=== PATIENT | male | born 1955 | race Caucasian/White ===

== ENCOUNTER 2021-10-26 02:18 | Inpatient (IN) ==
[2021-10-26] MEDS ORDERED: 0.9 % SODIUM CHLORIDE 1,000 ML IV ONE ×3 (02:26→07:49)
[2021-10-26 03:23] LABS: POC Blood Urea Nitrogen 25 (6-20); POC Calcium, Ionized 0.91 (1.16-1.32); POC Chloride 88 (96-108); POC Glucose, Random 168 (70-105); POC Potassium < 2.0 (3.3-5.1); POC Sodium 129 (133-145)
[2021-10-26] MEDS ORDERED: POTASSIUM CHLORIDE 20 MEQ TABLET PO ONE ×3 (03:26→23:50)
[2021-10-26] MEDS ORDERED: MAGNESIUM SULFATE 8.12 MEQ in DEXTROSE 5% IN WATER 50 ML IV ONE (03:26)
--- NOTE | 2021-10-26 03:27 | Emergency Department Note ---
HPI General Chief complaint: Weakness Stated complaint: Weakness Time Seen by Provider: 10/26/21 03:24 Source: patient Mode of arrival: ambulatory Limitations: no limitations History of Present Illness HPI Narrative: Patient recently treated for pneumonia presents with persistent episodes of falls syncopal events most of which prior to arrival just feeling overall weak. Denies striking head unclear of any complete loss of consciousness but did describe possibly shaking episode did not bite tongue or lose bowel or bladder continence. Patient denies current CP, sob, fever, chills, abdominal pain, n/v/d/c, focal acute weakness, loss/change of sensation, or any other complaints at this time. PMH/PSHx/Meds/Allergies/SH/FH as per nursing documentation and reviewed. A full 10 point review of systems reviewed and negative except as noted in HPI. Related Data Home Medications Medication Instructions Recorded Confirmed albuterol sulfate 90 mcg/actuation 2 puff INHALATION QID g 08/03/17 08/05/21 aerosol inhaler (Ventolin HFA) allopurinol 100 mg tablet 100 mg PO QDAY 08/03/17 08/05/21 amlodipine 10 mg-valsartan 320 1 tab PO QDAY 08/03/17 08/05/21 mg-hydrochlorothiazide 25 mg tablet (Exforge HCT) fenofibrate micronized 134 mg 134 mg PO QDAY 08/03/17 08/05/21 capsule fluticasone furoate 100 1 inh INHALATION QDAY each 08/03/17 08/05/21 mcg-vilanterol 25 mcg/dose inhalation powder (Breo Ellipta) omega-3 acid ethyl esters 1 gram 1 cap PO BID cap 08/03/17 08/05/21 capsule (Lovaza) lorazepam 1 mg tablet 1 mg PO ONCE PRN tab 09/07/17 09/30/21 fluticasone fur. 100 mcg-umeclid 1 inh INHALATION Q24H 06/19/21 08/05/21 62.5 mcg-vilant 25 mcg inhalat.powder (Trelegy Ellipta) furosemide 20 mg tablet (Lasix) mg PO 06/19/21 08/05/21 oxycodone 5 mg tablet 5 mg PO BID PRN 06/19/21 08/05/21 albuterol sulfate 90 mcg/actuation CONTINUOUS INHALATION 09/30/21 aerosol inhaler Previous Rx's Medication Instructions Recorded doxycycline hyclate 100 mg capsule 100 mg PO BID #13 cap 10/24/21 Allergies Allergy/AdvReac Type Severity Reaction Status Date / Time No Known Drug Allergies Allergy Verified 10/26/21 02:23 Review of Systems ROS ROS Narrative: See HPI PFSH Narrative Patient History Narrative: Narrative: Medical/Surgical/Family History All Active Problems (Updated 10/26/21 @ 04:45 by Cricket Alcala DO) Lightheadedness (Acute) Adverse drug effect (Acute) Syncope (Acute) Hypokalemia (Acute) Hypomagnesemia (Acute) Radiculopathy of lumbar region (Acute) Other low back pain (Chronic) Hypertriglyceridemia (Chronic) History of measles (Chronic) Lumbar degenerative disc disease (Chronic) Benign hypertension with CKD (chronic kidney disease) stage III (Chronic) Gout due to renal impairment (Chronic) Chest pain, unspecified (Chronic) Nicotine dependence, cigarettes, in remission (Chronic) Hyperglycemia, unspecified (Chronic) Other fatigue (Chronic) Anxiety disorder, unspecified (Chronic) Abnormal findings on diagnostic imaging of other specified body structures (Chronic) Impaired fasting glucose (Chronic) Essential (primary) hypertension (Chronic) Depression (Chronic) Smoking (Chronic) COPD (chronic obstructive pulmonary disease) (Chronic) Hypertension (Chronic) History of mumps (Chronic) History of chicken pox (Chronic) Bronchitis (Chronic) Unspecified kidney failure (Chronic) CKD (chronic kidney disease) (Chronic) Medical History (Updated 10/26/21 @ 04:45 by Cricket Alcala DO) Abnormal findings on diagnostic imaging of other specified body structures Anxiety disorder, unspecified Benign hypertension with CKD (chronic kidney disease) stage III Bronchitis Chest pain, unspecified CKD (chronic kidney disease) CKD (chronic kidney disease) stage 3, GFR 30-59 ml/min COPD (chronic obstructive pulmonary disease) Depression Essential (primary) hypertension Gout due to renal impairment History of chicken pox History of measles History of mumps Hyperglycemia, unspecified Hypertension Hypertriglyceridemia Impaired fasting glucose Lumbar degenerative disc disease Nicotine dependence, cigarettes, in remission Other fatigue Other low back pain Smoking Substance abuse (~1994) Unspecified kidney failure Surgical History (Updated 07/24/21 @ 11:39 by Afsaneh Cid) History of colonoscopy History of excision of mass Right groin History of left knee surgery (~1985) Family History (Updated 07/08/21 @ 12:24 by Clemencia Fajardo) Father , 06/2003 Throat cancer Lung cancer Mother , 10/2006 COPD (chronic obstructive pulmonary disease) Sister Family history of diabetes mellitus (DM) Social History Smoking Status: Current every day smoker Alcohol Intake Frequency: 2+ drinks per day Substance Use: marijuana Exam Narrative Narrative: PHYSICIAL EXAM: Vitals reviewed GENERAL: Awake alert in bed, no acute distress,The patient appears nourished and normally developed. Vital signs as documented. EYES: Head exam is unremarkable. No scleral icterus no nystagmus no gaze preference face symmetric no droop Pupils equal round reactive bilaterally, EOMI grossly intact HEENT: Mucous membranes moist. Nares patent without copious rhinorrhea. No evidence of trauma to tongue LUNGS: Lungs are clear to auscultation, -r/r/w without any respiratory distress. CARDIAC: Rhythm is regular. No dysrhythmias or murmurs. ABDOMEN: Soft, non-tender, non-distended, no rebound/guarding, with no obvious masses EXTREMITIES: No peripheral edema, with no obvious deformities. Skin tear to right elbow, but full range of motion intact without any significant pain or discomfort SKIN: Good color, with no significant rashes. No pallor. NEURO: No obvious neurological deficits, normal sensation and strength bilaterally. NIH 0 No pronator drift, negative test of skew, no difficulty or ataxia with finger to nose testing General Limitations: no limitations Course Reevaluation(s) Reevaluation #1: Patient darian awake alert room, potassium read as less than 2, concern for possible error on rapid empirically replace magnesium give oral dose of potassium until full results obtainable Time: 03:28 Reevaluation #2: Discussed patient potassium level is critical require replacement feel it likely events of near syncope may have been electrolyte associated in nature Time: 04:13 Consultations Consultation #1: Dr. Nowak spoke to the admitting physician about the patient's clinical workup as well as the emergency medicine treatment. Physician agrees to admission to their service at this time. Accepting physician will continue the medical evaluation/workup and treatment plan upon admission and add additional testing, interventions/treatment as necessary Time: 04:35 Vital Signs Vital signs: Vital Signs Temperature 97.2 F 10/26/21 02:19 Pulse Rate 81 10/26/21 02:19 Respiratory Rate 16 10/26/21 02:19 Blood Pressure 96/53 10/26/21 02:19 Pulse Oximetry (%) 95 10/26/21 02:19 Temperature 97.2 F 10/26/21 02:19 Pulse Rate 74 10/26/21 03:46 Respiratory Rate 18 10/26/21 04:31 Blood Pressure 127/72 10/26/21 04:31 Pulse Oximetry (%) 94 10/26/21 03:46 MDM MDM Narrative Medical decision making narrative: All results/imaging obtained reviewed and interpreted, results trended/compared with previous levels if available to evaluate for abnormality contributing to todays presentation, EKG with nonspecific changes slight prolonged QT and QTC, found to be hypokalemic severely and hypomagnesemic the etiology of syncopal-like events weakness possible electrolyte associated or intermittent arrhythmia, additionally can add a component of recent change of cardiac medication as he st ates symptoms worsened since time of starting Norvasc, electrolytes being replaced emergency department discussed admitting physician, after reviewing patients comorbidities, severity of history of presenting illness, labs and imaging if obtained in conjunction with physical exam and course in emergency department, deemed to have potential for deterioration/progression of symptoms that could lead to multiple morbidities or mortality, decision made that patient requires further observation/evaluation/treatment and patient admitted to appropriate service, patient/family understand and agree with plan. Chart created with voice recognition software, errors may be present due to softwares interpretation Lab Data Result diagrams: 10/26/21 03:13 10/26/21 03:30 Labs: Lab Results 10/26/21 10/26/21 10/26/21 Range/Units 03:13 03:13 03:15 WBC 14.9 H (4.5-11.0) K/mcL RBC 3.42 L (4.63-6.08) M/mcL Hgb 13.0 L (13.7-17.5) g/dL Hct 35.4 L (40.1-51.0) % POC Hct 36.0 L (41-55) MCV 103.5 H (80.0-100.0) fL MCH 38.0 H (26.0-34.0) pg MCHC 36.7 H (31.0-36.0) g/dL RDW 14.0 (11.5-14.5) % Plt Count 142 (140-440) K/mcL MPV 10.6 H (7.4-10.4) fL Neut % (Auto) 83.1 H (38.0-78.0) % Lymph % (Auto) 10.4 L (15.5-49.0) % [place] % (Auto) 6.4 (1.0-12.0) % Eos % (Auto) 0 (0.0-7.0) % Baso % (Auto) 0.1 (0.0-2.0) % Lymph # (Auto) 1.55 (1.50-4.80) K/mcL [place] # (Auto) 0.95 H (0.10-0.90) K/mcL Eos # (Auto) 0 (0.00-0.70) K/mcL Baso # (Auto) 0.02 (0.00-0.30) K/mcL Absolute Neutrophils 12.34 H (1.80-8.00) K/mcL POC Sodium 129 L (133-145) Sodium (133-145) mmol/L POC Potassium < 2.0 L* (3.3-5.1) Potassium (3.3-5.1) mmol/L POC Chloride 88 L (96-108) Chloride (96-108) mmol/L Carbon Dioxide (22-30) mmol/L POC Total CO2 25.0 (22-30) Anion Gap (8.0-16.0) POC BUN 25 H (6-20) BUN (8-23) mg/dL Creatinine (0.7-1.2) mg/dL POC Creatinine 1.0 (0.6-1.2) GFR Calculation Glucose (70-105) mg/dL POC Glucose 168 H (70-105) Calcium (8.6-10.4) mg/dL POC WB Ioniz Calcium 0.91 L (1.16-1.32) Magnesium 1.5 L (1.6-2.5) mg/dL 10/26/21 Range/Units 03:30 WBC (4.5-11.0) K/mcL RBC (4.63-6.08) M/mcL Hgb (13.7-17.5) g/dL Hct (40.1-51.0) % POC Hct (41-55) MCV (80.0-100.0) fL MCH (26.0-34.0) pg MCHC (31.0-36.0) g/dL RDW (11.5-14.5) % Plt Count (140-440) K/mcL MPV (7.4-10.4) fL Neut % (Auto) (38.0-78.0) % Lymph % (Auto) (15.5-49.0) % [place] % (Auto) (1.0-12.0) % Eos % (Auto) (0.0-7.0) % Baso % (Auto) (0.0-2.0) % Lymph # (Auto) (1.50-4.80) K/mcL [place] # (Auto) (0.10-0.90) K/mcL Eos # (Auto) (0.00-0.70) K/mcL Baso # (Auto) (0.00-0.30) K/mcL Absolute Neutrophils (1.80-8.00) K/mcL POC Sodium (133-145) Sodium 128 L (133-145) mmol/L POC Potassium (3.3-5.1) Potassium 1.7 L* (3.3-5.1) mmol/L POC Chloride (96-108) Chloride 85 L (96-108) mmol/L Carbon Dioxide 24 (22-30) mmol/L POC Total CO2 (22-30) Anion Gap 19.0 H (8.0-16.0) POC BUN (6-20) BUN 24 H (8-23) mg/dL Creatinine 0.9 (0.7-1.2) mg/dL POC Creatinine (0.6-1.2) GFR Calculation 90 Glucose 168 H (70-105) mg/dL POC Glucose (70-105) Calcium 7.6 L (8.6-10.4) mg/dL POC WB Ioniz Calcium (1.16-1.32) Magnesium (1.6-2.5) mg/dL EKG Data EKG #1: EKG attestation: Yes I reviewed and interpreted this EKG. EKG results narrative: Obtained 0242 reviewed 0244 Sinus rhythm, intraventricular conduction delay, nonspecific ST changes rate 75 NM 167 QRS 125 QT 526 QTC 588 normal axis no acute ST elevation depression signs of acute ischemia No previous for comparison Interpreted personally CC TIME Critical Care Time Critical Care Time: Yes Attestation: Due to the patient's symptoms on presentation. Need for frequent reassessment. Potential for deterioration. All ordered diagnostic testing results obtained were reviewed and interpreted, results trended/compared with previous levels if available to evaluate for abnormality/interval change contributing to todays presentation, found to be severely hypokalemic IV and oral potassium replacement IV magnesium replacement discussion with admitting physician,the time required for documentation in ED EMR Critical care time total 35 minutes. This did not include any separate billable procedures. Discharge Plan Patient/Caregiver Discharge Instructions Pt seen by HAND STONE POLISHER/PA only: No Clinical Impression: Syncope, Hypokalemia, Hypomagnesemia Patient Disposition: Xfer As Inpt ([facility]) Follow up with: Eryn Littlejohn MD [Primary Care Provider] - Prescriptions: No Action omega-3 acid ethyl esters [Lovaza] 1 gram capsule 1 cap PO BID 0RF fenofibrate micronized 134 mg capsule 134 mg PO QDAY 0RF fluticasone furoate-vilanterol [Breo Ellipta] 100-25 mcg/dose blister with device 1 inh INHALATION QDAY 0RF albuterol sulfate [Ventolin HFA] 90 mcg/actuation HFA aerosol inhaler 2 puff INHALATION QID 0RF [id number]-[id number] [Exforge HCT] 10-320-25 mg tablet 1 tab PO QDAY 0RF allopurinol 100 mg tablet 100 mg PO QDAY 0RF lorazepam 1 mg tablet 1 mg PO ONCE PRN (Reason: Anxiety) 0RF furosemide [Lasix] 20 mg Tablet PO 0RF Trelegy Ellipta 100-62.5-25 mcg Blister With Device 1 inh INHALATION Q24H 0RF oxycodone 5 mg Tablet 5 mg PO BID PRN (Reason: Pain) 0RF albuterol sulfate 90 mcg/actuation HFA aerosol inhaler continuous inhalation 0RF doxycycline hyclate 100 mg capsule 100 mg PO BID Qty: 13 0RF
[2021-10-26 03:54] LABS: Basophils # (Auto) 0.02 K/mcL (0.00-0.30); Basophils % (Auto) 0.1 % (0.0-2.0); Eosinophils # (Auto) 0 K/mcL (0.00-0.70); Eosinophils % (Auto) 0 % (0.0-7.0); Hematocrit 35.4 % (40.1-51.0); Lymphocytes # (Auto) 1.55 K/mcL (1.50-4.80); Lymphocytes % (Auto) 10.4 % (15.5-49.0); Mean Cell Volume 103.5 fL (80.0-100.0); Mean Corpuscular HGB Conc 36.7 g/dL (31.0-36.0); Mean Platelet Volume 10.6 fL (7.4-10.4); Monocytes # (Auto) 0.95 K/mcL (0.10-0.90); Monocytes % (Auto) 6.4 % (1.0-12.0); Neutrophils % (Auto) 83.1 % (38.0-78.0); Platelet Count 142 K/mcL (140-440); RBC 3.42 M/mcL (4.63-6.08); WBC 14.9 K/mcL (4.5-11.0)
[2021-10-26] MEDS ORDERED: POTASSIUM CHLORIDE 20 MEQ in DEXTROSE 5% IN WATER 250 ML IV ONE (03:59)
[2021-10-26 04:01] LABS: Blood Urea Nitrogen 24 mg/dL (8-23); Calcium 7.6 mg/dL (8.6-10.4); Carbon Dioxide 24 mmol/L (22-30); Chloride 85 mmol/L (96-108); Glomerular Filtration Rate 90; Glucose 168 mg/dL (70-105)
--- NOTE | 2021-10-26 04:44 | Internal Med History&Physical ---
HPI History of Present Illness Patient information: Note initiated : 10/26/21 at 4:44 am Service Date, if different from initiated Date: [] Patient: Bassam Parkinson 66 y/o M admitted on for Weakness. Chief Complaint: [] History of present illness: Mr. Parkinson is a 66 year old male with a history of HTN, COPD, gout presented to the ED for dyspnea and discharged home on 10/24/2021 with a prescription for doxycycline for pneumonia. The patient returned to the ED after falling multiple times at home. The patient was found to have leukocytosis, severe hypokalemia and hypomagnesemia as well as hypocalcemia. Hospital medicine was consulted for admission. Review of systems Constitutional: Positive for fatigue, fevers Eyes: no vision changes or pain Cardiovascular: no chest pain, no palpitations Respiratory: Positive for productive cough and dyspnea Gastrointestinal: no abdominal pain, no nausea, vomiting, or diarrhea Genitourinary: no dysuria or difficulty voiding Musculoskeletal: no arthralgia or myalgia Integumentary: no skin lesion or wound Neurological: no focal weakness or numbness Psychiatric: no anxiety or depression Physical exam Head: Atraumatic, normal inspection. Eyes: normal appearance, no scleral icterus. Neck: full ROM Respiratory: Bilateral crackles, right greater than left, on room air, no respiratory distress. Cardiovascular: normal rate and rhythm, S1, S2. GI/Abdominal: soft, nontender, no guarding. Extremities: full range of motion, nontender. Neurological: CN II-XII intact, intact motor, intact sensation. Psychiatric: normal mood. Skin: warm, normal color PFSH PFSH All Active Problems (Updated 10/26/21 @ 04:45 by Cricket Alcala DO) Lightheadedness (Acute) Adverse drug effect (Acute) Syncope (Acute) Hypokalemia (Acute) Hypomagnesemia (Acute) Radiculopathy of lumbar region (Acute) Other low back pain (Chronic) Hypertriglyceridemia (Chronic) History of measles (Chronic) Lumbar degenerative disc disease (Chronic) Benign hypertension with CKD (chronic kidney disease) stage III (Chronic) Gout due to renal impairment (Chronic) Chest pain, unspecified (Chronic) Nicotine dependence, cigarettes, in remission (Chronic) Hyperglycemia, unspecified (Chronic) Other fatigue (Chronic) Anxiety disorder, unspecified (Chronic) Abnormal findings on diagnostic imaging of other specified body structures (Chronic) Impaired fasting glucose (Chronic) Essential (primary) hypertension (Chronic) Depression (Chronic) Smoking (Chronic) COPD (chronic obstructive pulmonary disease) (Chronic) Hypertension (Chronic) History of mumps (Chronic) History of chicken pox (Chronic) Bronchitis (Chronic) Unspecified kidney failure (Chronic) CKD (chronic kidney disease) (Chronic) Medical History (Updated 10/26/21 @ 04:45 by Cricket Alcala DO) Abnormal findings on diagnostic imaging of other specified body structures Anxiety disorder, unspecified Benign hypertension with CKD (chronic kidney disease) stage III Bronchitis Chest pain, unspecified CKD (chronic kidney disease) CKD (chronic kidney disease) stage 3, GFR 30-59 ml/min COPD (chronic obstructive pulmonary disease) Depression Essential (primary) hypertension Gout due to renal impairment History of chicken pox History of measles History of mumps Hyperglycemia, unspecified Hypertension Hypertriglyceridemia Impaired fasting glucose Lumbar degenerative disc disease Nicotine dependence, cigarettes, in remission Other fatigue Other low back pain Smoking Substance abuse (~1994) Unspecified kidney failure Surgical History (Updated 07/24/21 @ 11:39 by Afsaneh Cid) History of colonoscopy History of excision of mass Right groin History of left knee surgery (~1985) Family History (Updated 07/08/21 @ 12:24 by Clemencia Fajardo) Father , 06/2003 Throat cancer Lung cancer Mother , 10/2006 COPD (chronic obstructive pulmonary disease) Sister Family history of diabetes mellitus (DM) Social History (Updated 07/24/21 @ 11:41 by Afsaneh Cid) marital status: other details: twice, in stable relationship for 15 yrs. 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 substance use type: marijuana MEDS/ALLERGIES Home Medications and Allergies Home Medications Medication Instructions Recorded Confirmed Type fenofibrate micronized 134 mg 134 mg PO HS 08/03/17 10/26/21 History capsule omega-3 acid ethyl esters 1 gram 1 cap PO BID cap 08/03/17 10/26/21 History capsule (Lovaza) doxycycline hyclate 100 mg capsule 100 mg PO BID #13 cap 10/24/21 10/26/21 Rx albuterol sulfate 90 mcg/actuation 2 inh INHALATION QID 10/26/21 10/26/21 History aerosol inhaler allopurinol 100 mg tablet 1 tab PO HS 10/26/21 10/26/21 History amlodipine 5 mg tablet 1 tab PO HS 10/26/21 10/26/21 History fluticasone fur. 100 mcg-umeclid 1 puff PO QDAY 10/26/21 10/26/21 History 62.5 mcg-vilant 25 mcg inhalat.powder (Trelegy Ellipta) lorazepam 1 mg tablet 1 tab PO BIDP PRN 10/26/21 10/26/21 History oxycodone-acetaminophen 5 mg-325 1 - 2 tab PO Q6HP PRN 10/26/21 10/26/21 History mg tablet sertraline 100 mg tablet 1 tab PO HS 10/26/21 10/26/21 History sildenafil 100 mg tablet 1 tab PO QDP PRN 10/26/21 10/26/21 History telmisartan 80 mg tablet 1 tab PO HS 10/26/21 10/26/21 History Allergies Allergy/AdvReac Type Severity Reaction Status Date / Time No Known Drug Allergies Allergy Verified 10/26/21 02:23 EXAM Constitutional Vitals: Temp Pulse Resp BP Pulse Ox 97.2 F 74 18 127/72 94 10/26/21 02:19 10/26/21 03:46 10/26/21 04:31 10/26/21 04:31 10/26/21 03:46 DATA Data Completed and Pending Labs: Labs from last 24 hours 10/26/21 10/26/21 10/26/21 03:30 03:15 03:13 WBC 14.9 H RBC 3.42 L Hgb 13.0 L Hct 35.4 L POC Hct 36.0 L MCV 103.5 H MCH 38.0 H MCHC 36.7 H RDW 14.0 Plt Count 142 MPV 10.6 H Neut % (Auto) 83.1 H Lymph % (Auto) 10.4 L [place] % (Auto) 6.4 Eos % (Auto) 0 Baso % (Auto) 0.1 Lymph # (Auto) 1.55 [place] # (Auto) 0.95 H Eos # (Auto) 0 Baso # (Auto) 0.02 Absolute Neutrophils 12.34 H POC Sodium 129 L Sodium 128 L POC Potassium < 2.0 L* Potassium 1.7 L* POC Chloride 88 L Chloride 85 L Carbon Dioxide 24 POC Total CO2 25.0 Anion Gap 19.0 H POC BUN 25 H BUN 24 H Creatinine 0.9 POC Creatinine 1.0 GFR Calculation 90 Glucose 168 H POC Glucose 168 H Calcium 7.6 L POC WB Ioniz Calcium 0.91 L Magnesium 10/26/21 03:13 WBC RBC Hgb Hct POC Hct MCV MCH MCHC RDW Plt Count MPV Neut % (Auto) Lymph % (Auto) [place] % (Auto) Eos % (Auto) Baso % (Auto) Lymph # (Auto) [place] # (Auto) Eos # (Auto) Baso # (Auto) Absolute Neutrophils POC Sodium Sodium POC Potassium Potassium POC Chloride Chloride Carbon Dioxide POC Total CO2 Anion Gap POC BUN BUN Creatinine POC Creatinine GFR Calculation Glucose POC Glucose Calcium POC WB Ioniz Calcium Magnesium 1.5 L A/P Narrative A/P Narrative: Assessment: 66 year old male with a history of HTN, COPD, gout presented to the ED for dyspnea and discharged home on 10/24/2021 with a prescription for doxycycline for pneumonia. The patient returned to the ED after falling multiple times at home, subsequently admitted to the hospital for further management. #Sepsis probably secondary to community-acquired pneumonia #Severe hypokalemia #Hypomagnesemia #Hypocalcemia #Prolonged QT interval #Moderate hyponatremia #Anion gap #Macrocytic anemia #Essential hypertension #COPD #Gout #Tobacco use disorder #Alcohol use disorder Plan -Vancomycin, Zosyn, doxycycline for now. -Potassium replacement. -Magnesium replacement. -Follow potassium closely until normalized. -Avoid QT prolonging medications. -Monitor QT interval until normalized. -Hold home diuretics until potassium normalized. -IV fluid with NS. -Sputum gram stain and culture. -MRSA nasal PCR. -Blood cultures. -UA w/ reflex. -CT chest without contrast. -Check lactic acid, procal, CRP. -Check vitamin B12 and folic acid. -Check Vitamin D level. -DuoNeb Q6 hrs and albuterol nebs as needed -Nicotine replacement. -Monitor for alcohol withdrawal symptoms. -Home medication reconciliation. -Regular diet. -site monitor. -DVT ppx: Lovenox -Code status: Metal Grader Spent With Patient Time: Total time spent is greater than 50% in coordination of care (as documented) at patient's floor/unit and/or counseling patient:
[2021-10-26] MEDS ORDERED: 0.9 % SODIUM CHLORIDE 500 ML IV ONE ×2 (04:48→07:52)
--- NOTE | 2021-10-26 05:31 | Cat Scan Report ---
CLINICAL INFORMATION: Trauma-fall. Dizziness COMPARISON: None. TECHNIQUE: 2.5 mm helical slices were obtained in the skull base to vertex. Following reconstruction, axial reformatted images were reviewed at bone and parenchymal windows. The exam was performed using radiation dose optimization techniques including, but not limited to, automated exposure control, adjustment of the mA and/or kV according to patient size and use of iterative reconstruction technique. FINDINGS: The ventricles, sulci, fissures, and cisterns are symmetrically enlarged compatible with mild age-related atrophy. No extra-axial fluid collections are identified. Mild patchy chronic ischemic changes, in the deep cerebral white matter, are expected for age. There is no hemorrhage, mass effect, or edema. Bone windows show no osseous abnormality. IMPRESSION: Mild atrophy and chronic ischemic changes in the deep cerebral white matter-expected for age. No acute findings Interpreted and Authenticated by: Vikas Sykes 10/26/21
[2021-10-26] MEDS ORDERED: SENNOSIDES 1 TABLET PO PRN (05:45)
[2021-10-26] MEDS ORDERED: HYDROcodone/APAP 5/325MG TABLET PO PRN (05:45)
[2021-10-26] MEDS ORDERED: LACTULOSE 20 GM/30 ML ORAL.SOL PO PRN (05:45)
[2021-10-26] MEDS ORDERED: ACETAMINOPHEN 325 MG TABLET PO PRN (05:45)
[2021-10-26] MEDS ORDERED: ONDANSETRON 4 MG/2 ML VIAL IV PRN (05:45)
[2021-10-26] MEDS ORDERED: IPRATROPIUM/ALBUTEROL 3 ML AMPUL.NEB NEB SCH (07:00)
[2021-10-26] MEDS: 0.9 % SODIUM CHLORIDE 1,000 ML IV SCH ×3 (07:36→19:17)
[2021-10-26] MEDS: 0.9 % SODIUM CHLORIDE 10 ML SYRINGE IV SCH ×3 (07:36→20:09)
[2021-10-26] MEDS ORDERED: VANCOMYCIN PER PHARMACY IV SCH (07:48)
[2021-10-26] MEDS ORDERED: POTASSIUM CHLORIDE 20 MEQ TABLET PO SCH ×4 (08:00→19:00)
[2021-10-26] MEDS ORDERED: VANCOMYCIN 1,500 MG in 0.9 % SODIUM CHLORIDE 500 ML IV SCH (08:15)
[2021-10-26] MEDS ORDERED: IPRATROPIUM/ALBUTEROL 3 ML AMPUL.NEB NEB PRN (08:20)
[2021-10-26 08:32] LABS: Appearance,Urine CLEAR (Clear); Bilirubin,Urine Negative (Negative); Color,Urine STRAW; Culture Indicated,Urine No; Glucose,Urine (UA) Negative (Negative); Ketones,Urine Negative (Negative); Leukocyte Esterase,Urine Negative /uL (Negative); Nitrate,Urine Negative (Negative); Protein,Urine Negative (Negative); Specific Gravity,Urine 1.004 (1.000-1.035); Urine Blood Negative (Negative); Urobilinogen,Urine Negative
[2021-10-26] MEDS: ALLOPURINOL 100 MG TABLET PO SCH ×3 (08:44→20:01)
[2021-10-26] MEDS: ENOXAPARIN 40 MG/0.4 ML SYRINGE SQ SCH (08:44)
[2021-10-26] MEDS: LORazepam 1 MG TABLET PO PRN ×2 (08:45→21:41)
[2021-10-26] MEDS: PIPERACILLIN SODIUM/TAZOBACTAM 4.5 GM in DEXTROSE 5% IN WATER 50 ML IV SCH ×2 (08:59→14:17)
[2021-10-26] MEDS ORDERED: SERTRALINE 100 MG TABLET PO SCH (09:00)
[2021-10-26] MEDS: FLUTICASONE UMECLIDIN VILANTER INH SCH (09:02)
[2021-10-26] MEDS: DOCUSATE SODIUM 100 MG CAPSULE PO SCH ×2 (09:02→19:33)
[2021-10-26] MEDS ORDERED: ALBUTEROL SULFATE 2.5 MG/3 ML NEBULIZER NEB PRN (09:43)
[2021-10-26] MEDS ORDERED: LORazepam 2 MG/ML VIAL IV PRN ×2 (09:45→23:29)
[2021-10-26] MEDS ORDERED: NICOTINE POLACRILEX 2 MG GUM CHEW/PARK PRN (09:46)
[2021-10-26] MEDS: DOXYCYCLINE 100 MG in DEXTROSE 5% IN WATER 100 ML IV SCH ×2 (11:08→19:12)
[2021-10-26] MEDS: NICOTINE 21 MG PATCH TOPICAL SCH ×2 (11:08→11:18)
[2021-10-26 11:37] LABS: Blood Urea Nitrogen 18 mg/dL (8-23); Calcium 7.2 mg/dL (8.6-10.4); Carbon Dioxide 27 mmol/L (22-30); Chloride 95 mmol/L (96-108); Folate 5.1 ng/mL (4.2-19.9); Glomerular Filtration Rate 99; Glucose 146 mg/dL (70-105)
[2021-10-26] MEDS ORDERED: CALCIUM GLUCONATE 4.65 MEQ in DEXTROSE 5% IN WATER 50 ML IV SCH (11:45)
[2021-10-26 11:50] LABS: Vitamin D 25 Hydroxy-SO < 5 ng/mL (>30)
[2021-10-26] MEDS ORDERED: oxyCODONE/APAP 5/325MG TABLET PO PRN (12:00)
[2021-10-26] MEDS: CALCIUM CARBONATE 500 MG TAB.CHEW CHEWED SCH ×2 (12:03→17:37)
--- NOTE | 2021-10-26 13:52 | Cat Scan Report ---
CLINICAL INFORMATION: Cough and weakness. Evaluate for pneumonia. History of colon cancer COMPARISON: Chest CT 05/25/2018 TECHNIQUE: 0.625 mm axial slices were obtained from the lung apices through the bases without intravenous contrast. 2.5 mm Sagittal, coronal and axial reformatted images were processed and reviewed at bone, lung and soft tissue windows. 7 mm axial MIP images were also reconstructed to optimize pulmonary nodule detection.The exam was performed using radiation dose optimization techniques including, but not limited to, automated exposure control, adjustment of the mA and/or kV according to patient size and use of iterative reconstruction technique. FINDINGS: Pulmonary parenchymal windows show mild centrilobular emphysema featuring chronic bronchitis with elevated lung volumes and wall thickening/dilatation of the bronchi. There are also multiple small bullae predominantly within the upper lobes. Moderate patchy groundglass/tree-in-bud infiltrates have developed in both lower lobes with smaller infiltrates in the lingula and posterior segments of both upper lobes. Findings suspicious for aspiration pneumonia. There are no effusions. Mediastinal windows show the heart is grossly normal in size and configuration. Extremely heavy calcific plaque in the coronary artery has progressed since the 2018 exam particularly in the LAD and circumflex coronary arteries. The pulmonary arteries are normal diameter well-opacified without evidence of embolus. Thoracic aorta is also normal diameter and well-opacified. There is no adenopathy in the mediastinal, hilar or axillary regions. Esophagus is grossly normal. The thyroid is unremarkable. Bones and soft tissues of the chest wall show no abnormality. Images through the superior abdomen moderate hepatomegaly with diffuse fatty change-a new finding from 2018 CT. The remainder the visualized superior abdomen is normal. IMPRESSION: 1. Moderate patchy alveolar infiltrates in both lower lobes with smaller infiltrates scattered in the lingula and both upper lobes. Findings are suspicious for aspiration pneumonia. Infection is also possible. 2. Moderate centrilobular emphysema 3. Extraordinarily heavy calcific plaque in the coronary arteries which has progressed since the comparison CT over three years ago. Suspect occlusive or subocclusive coronary artery disease. Consider cardiology referral for stress testing. 4. Moderate hepatomegaly with diffuse fatty change-a new finding from prior CT. Interpreted and Authenticated by: Vikas Sykes 10/26/21
[2021-10-26] MEDS ORDERED: REMDESIVIR 200 MG in 0.9 % SODIUM CHLORIDE 250 ML IV ONE (16:36)
[2021-10-26] MEDS ORDERED: DEXAMETHASONE 10 MG/ML VIAL IV SCH (16:40)
[2021-10-26 17:28] LABS: ALT/SGPT 95 U/L (<40); AST/SGOT 126 U/L (<40); Albumin 2.7 gm/dL (3.2-5.2); Alkaline Phosphatase 114 U/L (39-117); Bilirubin,Direct 0.4 mg/dL (<0.3); Bilirubin,Total 0.8 mg/dL (0.1-1.0); Blood Urea Nitrogen 15 mg/dL (8-23); Calcium 7.7 mg/dL (8.6-10.4); Carbon Dioxide 28 mmol/L (22-30); Chloride 100 mmol/L (96-108); Globulin 2.7 gm/dL (2.2-3.7); Glomerular Filtration Rate 99; Glucose 133 mg/dL (70-105); Lactate Dehydrogenase 318 U/L (135-225); Phosphorous 0.9 mg/dL (2.5-4.5); Triglycerides 158 mg/dL (<150); Uric Acid 4.2 mg/dL (2.5-8.0)
[2021-10-26] MEDS: cefTRIAXone 1 GM VIAL IV SCH (18:00)
[2021-10-26] MEDS ORDERED: MAGNESIUM SULFATE 2 GM/50 ML BAG IV SCH (19:00)
[2021-10-26] MEDS ORDERED: VITAMIN D3 125 MCG TABLET PO SCH (19:00)
[2021-10-26] MEDS ORDERED: VANCOMYCIN 750 MG in 0.9 % SODIUM CHLORIDE 250 ML IV SCH (20:00)
[2021-10-26] MEDS: SERTRALINE 100 MG TABLET PO SCH (20:01)
[2021-10-26] MEDS ORDERED: REMDESIVIR 200 MG in 0.9 % SODIUM CHLORIDE 250 ML IV SCH (20:45)
[2021-10-26] MEDS ORDERED: ETHYL ALCOHOL 30 ML ORAL.SOL PO PRN (22:03)
[2021-10-26] MEDS ORDERED: ETHYL ALCOHOL 30 ML ORAL.SOL PO ONE (22:40)
[2021-10-26 23:23] LABS: Blood Urea Nitrogen 12 mg/dL (8-23); Calcium 7.9 mg/dL (8.6-10.4); Carbon Dioxide 27 mmol/L (22-30); Chloride 96 mmol/L (96-108); Glomerular Filtration Rate 106; Glucose 99 mg/dL (70-105)
[2021-10-26] MEDS ORDERED: POTASSIUM PHOSPHATE 40 MEQ in DEXTROSE 5% IN WATER 500 ML IV ONE (23:29)
[2021-10-26] MEDS ORDERED: POTASSIUM PHOSPHATE 66 MEQ/15 ML VIAL IV ONE (23:48)
[2021-10-27] MEDS: 0.9 % SODIUM CHLORIDE 1,000 ML IV SCH (01:56)
[2021-10-27] MEDS: THIAMINE 100 MG in 0.9 % SODIUM CHLORIDE 50 ML IV SCH ×2 (01:56→11:30)
[2021-10-27] MEDS: 0.9 % SODIUM CHLORIDE 10 ML SYRINGE IV SCH ×6 (05:29→22:31)
[2021-10-27] MEDS ORDERED: ETHYL ALCOHOL 30 ML ORAL.SOL PO PRN (06:00)
[2021-10-27 07:15] LABS: Basophils # (Auto) 0.01 K/mcL (0.00-0.30); Basophils % (Auto) 0.1 % (0.0-2.0); Eosinophils # (Auto) 0 K/mcL (0.00-0.70); Eosinophils % (Auto) 0 % (0.0-7.0); Hematocrit 36.1 % (40.1-51.0); Hemoglobin 13.1 g/dL (13.7-17.5); Lymphocytes # (Auto) 1.04 K/mcL (1.50-4.80); Lymphocytes % (Auto) 9.7 % (15.5-49.0); Mean Cell Volume 104.9 fL (80.0-100.0); Mean Corpuscular HGB Conc 36.3 g/dL (31.0-36.0); Mean Platelet Volume 9.9 fL (7.4-10.4); Monocytes # (Auto) 0.79 K/mcL (0.10-0.90); Monocytes % (Auto) 7.4 % (1.0-12.0); Neutrophils % (Auto) 82.8 % (38.0-78.0); Platelet Count 134 K/mcL (140-440); RBC 3.44 M/mcL (4.63-6.08); Red Cell Distribution Width 13.9 % (11.5-14.5); WBC 10.7 K/mcL (4.5-11.0)
[2021-10-27 07:44] LABS: ALT/SGPT 92 U/L (<40); AST/SGOT 99 U/L (<40); Albumin 3.2 gm/dL (3.2-5.2); Albumin/Globulin Ratio 1.4 (1.0-2.3); Alkaline Phosphatase 103 U/L (39-117); Bilirubin,Direct 0.4 mg/dL (<0.3); Bilirubin,Total 0.7 mg/dL (0.1-1.0); Blood Urea Nitrogen 7 mg/dL (8-23); Calcium 7.1 mg/dL (8.6-10.4); Carbon Dioxide 27 mmol/L (22-30); Chloride 99 mmol/L (96-108); Globulin 2.3 gm/dL (2.2-3.7); Glomerular Filtration Rate 114; Glucose 99 mg/dL (70-105); Lactate Dehydrogenase 307 U/L (135-225); Phosphorous 1.8 mg/dL (2.5-4.5); Triglycerides 160 mg/dL (<150); Uric Acid 2.7 mg/dL (2.5-8.0)
[2021-10-27] MEDS ORDERED: MAGNESIUM SULFATE 2 GM/50 ML BAG IV ONE (07:46)
[2021-10-27] MEDS ORDERED: POTASSIUM PHOSPHATE 40 MEQ in DEXTROSE 5% IN WATER 500 ML IV SCH (08:00)
[2021-10-27] MEDS ORDERED: POTASSIUM CHLORIDE 20 MEQ TABLET PO SCH (08:00)
[2021-10-27] MEDS: VITAMIN D3 125 MCG TABLET PO SCH (08:14)
[2021-10-27] MEDS: CALCIUM CARBONATE 500 MG TAB.CHEW CHEWED SCH ×3 (08:14→16:50)
[2021-10-27] MEDS: FOLIC ACID 1 MG TABLET PO SCH (08:14)
[2021-10-27] MEDS: MULTIVIT,THER IRON,CA,FA & MIN 1 TABLET PO SCH (08:14)
[2021-10-27] MEDS: cefTRIAXone 1 GM VIAL IV SCH (08:15)
[2021-10-27] MEDS: DOXYCYCLINE 100 MG in DEXTROSE 5% IN WATER 100 ML IV SCH ×2 (08:15→20:19)
[2021-10-27] MEDS: ENOXAPARIN 40 MG/0.4 ML SYRINGE SQ SCH (08:32)
[2021-10-27] MEDS: DOCUSATE SODIUM 100 MG CAPSULE PO SCH ×2 (08:32→20:46)
[2021-10-27] MEDS: FLUTICASONE UMECLIDIN VILANTER INH SCH (08:32)
[2021-10-27] MEDS ORDERED: LISINOPRIL 10 MG TABLET PO SCH (09:00)
--- NOTE | 2021-10-27 09:22 | Internal Med Progress Note ---
SUBJECTIVE Subjective Patient information: Note initiated : 10/27/21 at 9:18 am Service Date, if different from initiated Date: [] Patient: Bassam Parkinson 66 y/o M admitted on 10/26/21 for Weakness. Chief Complaint: [] Interval history: Mr. Parkinson is a 66 year old male with a history of HTN, COPD, gout presented to the ED for dyspnea and discharged home on 10/24/2021 with a prescription for doxycycline for pneumonia. The patient returned to the ED after falling multiple times at home. The patient was found to have leukocytosis, severe hy pokalemia and hypomagnesemia as well as hypocalcemia. Hospital medicine was consulted for admission. 10/27 Annabella resulted as positive for SARS-CoV-2, patient is on room air, high-grade temps but no fevers overnight Remdesivir started for nonsevere COVID of recent onset. Ongoing electrolyte replacement with potassium, phosphorus, magnesium. Repeat EKG shows improvement in QT interval. Aldosterone and renin activity ratio ordered for persistent hypokalemia in the setting of hypertension. Home telmisartan and amlodipine resumed. Physical exam Head: Atraumatic, normal inspection. Eyes: normal appearance, no scleral icterus. Neck: full ROM Respiratory: On room air, no respiratory distress. Cardiovascular: normal rate and rhythm, S1, S2. GI/Abdominal: soft, nontender, no guarding. Extremities: full range of motion, nontender. Neurological: CN II-XII intact, intact motor, intact sensation. Psychiatric: normal mood. Skin: warm, normal color Constitutional Vitals: Vital Signs Temp Pulse Resp BP Pulse Ox 99.4 F H 77 22 147/86 95 10/27/21 08:38 10/26/21 20:01 10/27/21 04:51 10/27/21 08:38 10/27/21 08:38 Period Temp Pulse Resp BP Sys/June Pulse Ox Last 24 Hr 97.7 F-99.4 F 71-79 - 116-164/73-114 92-98 Intake and Output 10/26/21 10/27/21 10/27/21 21:59 05:59 13:59 Intake Total 1800 1599.0909 Output Total 350 150 Balance 1450 1449.0909 Weight 75.568 kg Intake & Output: Intake & Output 10/26/21 10/27/21 10/27/21 21:59 05:59 13:59 Intake Total 1800 1599.0909 Output Total 350 150 Balance 1450 1449.0909 Weight 75.568 kg Intake: IV 8504 402.8003 Sodium Chloride 0.9% 1,000 ml @ 1000 100 mls/hr IV .Q10H [facility] Rx#: [id number] Vibramycin 100 mg In Dextrose 5 100 % in Water 100 ml @ 100 mls/hr IV Q12H [facility] Rx#:[id number] Zosyn 4.5 gm In Dextrose 5% in 50 Water 50 ml @ 100 mls/hr IV Q6H [facility] Rx#:[id number] Potassium Phosphate 40 Meq In 509.0909 Dextrose 5% in Water 500 ml @ 127.273 mls/hr IV ONCE ONE Rx#: [id number] Veklury 200 mg In Sodium 250 Chloride 0.9% 250 ml @ 500 mls/ hr IV 2045 [facility] Rx#:[id number] Oral 600 840 Output: Void Amount 350 150 Other: Meal Dinner Percent of Meal Consumed 100% Feeding Ability Independent Urine Appearance Clear Clear Urine Color Dark Yellow Bright Yellow Urine Odor Normal Stool Size Small Small Stool Color Brown Brown Stool Consistency Loose Liquid Loose # Voids 1 1 # Bowel Movements 1 1 OBJ DATA Labs CBC & Chem 7: 10/27/21 06:00 10/27/21 06:00 Labs: Abnormal Lab Results 10/27/21 10/27/21 10/26/21 06:00 06:00 21:53 WBC RBC 3.44 L Hgb 13.1 L Hct 36.1 L POC Hct MCV 104.9 H MCH 38.1 H MCHC 36.3 H Plt Count 134 L MPV Neut % (Auto) 82.8 H Lymph % (Auto) 9.7 L Lymph # (Auto) 1.04 L [place] # (Auto) Absolute Neutrophils 8.85 H VBG Lactic Acid POC Sodium Sodium POC Potassium Potassium 2.7 L* 2.8 L* POC Chloride Chloride Anion Gap POC BUN BUN 7 L Creatinine 0.5 L 0.6 L Glucose POC Glucose Calcium 7.1 L 7.9 L POC WB Ioniz Calcium Phosphorus 1.8 L Magnesium 1.4 L Direct Bilirubin 0.4 H GGT 563 H AST 99 H ALT 92 H Lactate Dehydrogenase 307 H C-Reactive Protein Total Protein 5.5 L Albumin Triglycerides 160 H 25-OH Vitamin D Total Procalcitonin 10/26/21 10/26/21 10/26/21 16:01 10:11 10:11 WBC RBC Hgb Hct POC Hct MCV MCH MCHC Plt Count MPV Neut % (Auto) Lymph % (Auto) Lymph # (Auto) [place] # (Auto) Absolute Neutrophils VBG Lactic Acid POC Sodium Sodium POC Potassium Potassium 2.6 L* 2.0 L* POC Chloride Chloride 95 L Anion Gap POC BUN BUN Creatinine Glucose 133 H 146 H POC Glucose Calcium 7.7 L 7.2 L POC WB Ioniz Calcium Phosphorus 0.9 L Magnesium 1.5 L Direct Bilirubin 0.4 H GGT 543 H AST 126 H ALT 95 H Lactate Dehydrogenase 318 H C-Reactive Protein Total Protein 5.4 L Albumin 2.7 L Triglycerides 158 H 25-OH Vitamin D Total < 5 L Procalcitonin 10/26/21 10/26/21 10/26/21 06:11 06:11 06:10 WBC RBC Hgb Hct POC Hct MCV MCH MCHC Plt Count MPV Neut % (Auto) Lymph % (Auto) Lymph # (Auto) [place] # (Auto) Absolute Neutrophils VBG Lactic Acid 3.3 H POC Sodium Sodium POC Potassium Potassium POC Chloride Chloride Anion Gap POC BUN BUN Creatinine Glucose POC Glucose Calcium POC WB Ioniz Calcium Phosphorus Magnesium Direct Bilirubin GGT AST ALT Lactate Dehydrogenase C-Reactive Protein 13.30 H Total Protein Albumin Triglycerides 25-OH Vitamin D Total Procalcitonin 0.41 H 10/26/21 10/26/21 10/26/21 03:30 03:15 03:13 WBC 14.9 H RBC 3.42 L Hgb 13.0 L Hct 35.4 L POC Hct 36.0 L MCV 103.5 H MCH 38.0 H MCHC 36.7 H Plt Count MPV 10.6 H Neut % (Auto) 83.1 H Lymph % (Auto) 10.4 L Lymph # (Auto) [place] # (Auto) 0.95 H Absolute Neutrophils 12.34 H VBG Lactic Acid POC Sodium 129 L Sodium 128 L POC Potassium < 2.0 L* Potassium 1.7 L* POC Chloride 88 L Chloride 85 L Anion Gap 19.0 H POC BUN 25 H BUN 24 H Creatinine Glucose 168 H POC Glucose 168 H Calcium 7.6 L POC WB Ioniz Calcium 0.91 L Phosphorus Magnesium Direct Bilirubin GGT AST ALT Lactate Dehydrogenase C-Reactive Protein Total Protein Albumin Triglycerides 25-OH Vitamin D Total Procalcitonin 10/26/21 03:13 WBC RBC Hgb Hct POC Hct MCV MCH MCHC Plt Count MPV Neut % (Auto) Lymph % (Auto) Lymph # (Auto) [place] # (Auto) Absolute Neutrophils VBG Lactic Acid POC Sodium Sodium POC Potassium Potassium POC Chloride Chloride Anion Gap POC BUN BUN Creatinine Glucose POC Glucose Calcium POC WB Ioniz Calcium Phosphorus Magnesium 1.5 L Direct Bilirubin GGT AST ALT Lactate Dehydrogenase C-Reactive Protein Total Protein Albumin Triglycerides 25-OH Vitamin D Total Procalcitonin Meds: Medications Acetaminophen (Acetaminophen 325 Mg Tablet) 650 mg PO Q6HP PRN; Protocol PRN Reason: Per Pain Protocol/Fever > 101 Hydrocodone Bitart/Acetaminophen (Hydrocodone/Apap 5/325mg Tablet) 1 tab PO Q4HP PRN; Protocol PRN Reason: Per Pain Protocol Last Admin: 10/26/21 20:02 Dose: 1 tab Documented by: Albuterol Sulfate (Albuterol Sulfate 2.5 Mg/3 Ml Nebulizer) 2.5 mg NEB Q2HP PRN PRN Reason: Shortness Of Breath Albuterol/Ipratropium (Ipratropium/Albuterol 3 Ml Ampul.Neb) 3 ml NEB Q6HRT PRN PRN Reason: Anxiety Alcohol (Ethyl Alcohol 30 Ml Oral.Lauryn) 30 ml PO QIDP PRN PRN Reason: Alcohol Withdrawal Allopurinol (Allopurinol 100 Mg Tablet) 100 mg PO [facility] Last Admin: 10/26/21 20:01 Dose: 100 mg Documented by: Calcium Carbonate/Glycine (Calcium Carbonate 500 Mg Tab.Chew) 500 mg CHEWED TIDCC [facility] Last Admin: 10/27/21 08:14 Dose: 500 mg Documented by: Ceftriaxone Sodium (Ceftriaxone 1 Gm Vial) 1 gm IV Q24H [facility]; Protocol Last Admin: 10/27/21 08:15 Dose: 1 gm Documented by: Docusate Sodium (Docusate Sodium 100 Mg Capsule) 100 mg PO BID [facility] Last Admin: 10/27/21 08:32 Dose: Not Given Documented by: Enoxaparin Sodium (Enoxaparin 40 Mg/0.4 Ml Syringe) 40 mg SQ DAILY [facility] Last Admin: 10/27/21 08:32 Dose: 40 mg Documented by: Folic Acid (Folic Acid 1 Mg Tablet) 1 mg PO DAILY [facility] Last Admin: 10/27/21 08:14 Dose: 1 mg Documented by: Sodium Chloride (Sodium Chloride 0.9%) 1,000 mls @ 100 mls/hr IV .Q10H [facility] Last Admin: 10/27/21 01:56 Dose: Not Given Documented by: Doxycycline Hyclate 100 mg/ (Dextrose) 100 mls @ 100 mls/hr IV Q12H [facility]; Protocol Last Admin: 10/27/21 08:15 Dose: 100 mls/hr Documented by: REMDESIVIR 100 mg/ Sodium (Chloride) 250 mls @ 500 mls/hr IV Q24H [facility] Stop: 10/28/21 14:29 Thiamine HCl 100 mg/ Sodium (Chloride) 51 mls @ 50 mls/hr IV DAILY [facility] Stop: 10/28/21 10:02 Last Admin: 10/27/21 01:56 Dose: Not Given Documented by: Potassium Phosphate 40 meq/ (Dextrose) 509.0909 mls @ 63.636 mls/hr IV 0800 [facility] Stop: 10/27/21 12:00 Last Admin: 10/27/21 08:48 Dose: 63.636 mls/hr Documented by: Magnesium Sulfate (Magnesium Sulfate) 2 gm in 50 mls @ 25 mls/hr IV ONCE ONE Stop: 10/27/21 09:45 Last Admin: 10/27/21 08:52 Dose: 25 mls/hr Documented by: Iron Carb/Multivit/Steele/Folic Acid (Multivit,Ther Iron,Ca,Fa & Min 1 Tablet) 1 tab PO DAILY [facility] Last Admin: 10/27/21 08:14 Dose: 1 tab Documented by: Lactulose (Lactulose 20 Gm/30 Ml Oral.Lauryn) 10 gm PO DAILYP PRN PRN Reason: Constipation Lisinopril (Lisinopril 10 Mg Tablet) 10 mg PO DAILY [facility] Last Admin: 10/27/21 08:15 Dose: 10 mg Documented by: Lorazepam (Lorazepam 1 Mg Tablet) 1 mg PO BIDP PRN PRN Reason: anxiety Last Admin: 10/26/21 21:41 Dose: 1 mg Documented by: Lorazepam (Lorazepam 2 Mg/Ml Vial) 0 mg IV Q4HP PRN; Protocol PRN Reason: Alcohol Withdrawal Nicotine (Nicotine 21 Mg Patch) 21 mg TOPICAL DAILY@1000 [facility] Last Admin: 10/26/21 11:18 Dose: Not Given Documented by: Nicotine Polacrilex (Nicotine Polacrilex 2 Mg Gum) 2 mg CHEW/PARK Q4HP PRN PRN Reason: Nicotine withdrawal Oxycodone/Acetaminophen (Oxycodone/Apap 5/325mg Tablet) 1 - 2 tab PO Q6HP PRN; Protocol PRN Reason: Pain Fluticasone- Umeclidin-Vilanter [ Trelegy Ellipta 1 dose INH QDAY [facility] Last Admin: 10/27/21 08:32 Dose: Not Given Documented by: Potassium Chloride (Potassium Chloride 20 Meq Tablet) 60 meq PO 0800 [facility] Stop: 10/27/21 12:00 Last Admin: 10/27/21 08:15 Dose: 60 meq Documented by: Senna (Sennosides 1 Tablet) 2 tab PO HSP PRN PRN Reason: Constipation Sertraline HCl (Sertraline 100 Mg Tablet) 100 mg PO HS [facility] Last Admin: 10/26/21 20:01 Dose: 100 mg Documented by: Sodium Chloride (0.9 % Sodium Chloride 10 Ml Syringe) 10 ml IV Q8 [facility] Last Admin: 10/27/21 05:29 Dose: Not Given Documented by: Sodium Chloride (0.9 % Sodium Chloride 10 Ml Syringe) 10 ml IV Q8 [facility] Last Admin: 10/27/21 05:30 Dose: Not Given Documented by: Vitamin D (Vitamin D3 125 Mcg Tablet) 125 mcg PO DAILY [facility] Last Admin: 10/27/21 08:14 Dose: 125 mcg Documented by: A/P Narrative A/P Narrative: Assessment: 66 year old male with a history of HTN, COPD, gout presented to the ED for dyspnea and discharged home on 10/24/2021 with a prescription for doxycycline for pneumonia. The patient returned to the ED after falling multiple times at home, subsequently admitted to the hospital for further management. After admission the patient was found to have moderate patchy alveolar infiltrates in both lower lobes with small infiltrate scattered littered in the lingula and bilateral upper lobes. Annabella resulted positive for SARS-CoV-2. #Community-acquired pneumonia #Nonsevere COVID pneumonia #Severe hypokalemia #Hypomagnesemia #Hypocalcemia #Prolonged QT interval #Moderate hyponatremia #Macrocytic anemia #Severe vitamin D deficiency #Essential hypertension #COPD #Gout #Tobacco use disorder #Alcohol use disorder Plan -Ceftriaxone and doxycycline for community-acquired pneumonia. -Remdesivir IV x3 days for nonsevere COVID illness of recent onset. -Monitor respiratory status, has been on room air since admission. -Potassium replacement. -Magnesium replacement. -Phosphorus replacement. -Avoid QT prolonging medications. -Hold home diuretics until potassium normalized. -IV fluid with D5 KCl 1/2 NS. -Sputum gram stain and culture. -Follow blood cultures. -UA w/ reflex. -Vitamin D supplementation. -DuoNeb Q6 hrs and albuterol nebs as needed -Nicotine replacement. -Monitor for alcohol withdrawal symptoms. -Continue home albuterol, allopurinol, Trelegy Ellipta, lorazepam as needed, Percocet, sertraline. -Resume home amlodipine and telmisartan today.. -Regular diet. -telemetry monitor. -DVT ppx: Lovenox -Code status: Refractory Mixer Spent With Patient Time: Total time spent is greater than 50% in coordination of care (as documented) at patient's floor/unit and/or counseling patient:
[2021-10-27] MEDS: NICOTINE 21 MG PATCH TOPICAL SCH (09:30)
[2021-10-27] MEDS: POTASSIUM CHLORIDE 40 MEQ in DEXTROSE 5%-1/2NS 1,000 ML IV SCH (11:30)
--- NOTE | 2021-10-27 11:54 | EKG ---
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
--- NOTE | 2021-10-27 12:52 | EKG ---
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
--- NOTE | 2021-10-27 12:52 | EKG ---
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
[2021-10-27] MEDS: REMDESIVIR 100 MG in 0.9 % SODIUM CHLORIDE 250 ML IV SCH (13:33)
[2021-10-27] MEDS ORDERED: REMDESIVIR 100 MG in 0.9 % SODIUM CHLORIDE 250 ML IV SCH (16:45)
[2021-10-27] MEDS: ALLOPURINOL 100 MG TABLET PO SCH (20:19)
[2021-10-27] MEDS: SERTRALINE 100 MG TABLET PO SCH (20:19)
[2021-10-27] MEDS ORDERED: amLODIPine 5 MG TABLET PO SCH (21:00)
[2021-10-28] MEDS: POTASSIUM CHLORIDE 40 MEQ in DEXTROSE 5%-1/2NS 1,000 ML IV SCH ×2 (00:26→06:33)
[2021-10-28] MEDS: 0.9 % SODIUM CHLORIDE 10 ML SYRINGE IV SCH ×2 (06:34)
[2021-10-28 06:36] LABS: Basophils # (Auto) 0.02 K/mcL (0.00-0.30); Basophils % (Auto) 0.3 % (0.0-2.0); Eosinophils # (Auto) 0.01 K/mcL (0.00-0.70); Eosinophils % (Auto) 0.2 % (0.0-7.0); Hematocrit 40.1 % (40.1-51.0); Hemoglobin 14.7 g/dL (13.7-17.5); Lymphocytes # (Auto) 1.61 K/mcL (1.50-4.80); Lymphocytes % (Auto) 25.2 % (15.5-49.0); Mean Cell Volume 103.6 fL (80.0-100.0); Mean Corpuscular HGB Conc 36.7 g/dL (31.0-36.0); Mean Platelet Volume 10.1 fL (7.4-10.4); Monocytes % (Auto) 14.1 % (1.0-12.0); Neutrophils % (Auto) 60.2 % (38.0-78.0); Platelet Count 152 K/mcL (140-440); RBC 3.87 M/mcL (4.63-6.08); Red Cell Distribution Width 13.4 % (11.5-14.5); WBC 6.4 K/mcL (4.5-11.0)
[2021-10-28 06:37] LABS: ALT/SGPT 77 U/L (<40); AST/SGOT 72 U/L (<40); Albumin 3.2 gm/dL (3.2-5.2); Albumin/Globulin Ratio 1.1 (1.0-2.3); Alkaline Phosphatase 100 U/L (39-117); Bilirubin,Direct 0.4 mg/dL (<0.3); Bilirubin,Total 0.7 mg/dL (0.1-1.0); Blood Urea Nitrogen 7 mg/dL (8-23); Calcium 7.3 mg/dL (8.6-10.4); Carbon Dioxide 28 mmol/L (22-30); Chloride 97 mmol/L (96-108); Globulin 2.9 gm/dL (2.2-3.7); Glomerular Filtration Rate 106; Glucose 109 mg/dL (70-105); Lactate Dehydrogenase 312 U/L (135-225); Phosphorous 2.6 mg/dL (2.5-4.5); Triglycerides 70 mg/dL (<150); Uric Acid 2.4 mg/dL (2.5-8.0)
[2021-10-28] MEDS: ENOXAPARIN 40 MG/0.4 ML SYRINGE SQ SCH (08:07)
[2021-10-28] MEDS: CALCIUM CARBONATE 500 MG TAB.CHEW CHEWED SCH (08:08)
[2021-10-28] MEDS: DOXYCYCLINE 100 MG in DEXTROSE 5% IN WATER 100 ML IV SCH (08:08)
[2021-10-28] MEDS: cefTRIAXone 1 GM VIAL IV SCH (08:08)
[2021-10-28] MEDS: FLUTICASONE UMECLIDIN VILANTER INH SCH (08:09)
[2021-10-28] MEDS: MULTIVIT,THER IRON,CA,FA & MIN 1 TABLET PO SCH (08:09)
[2021-10-28] MEDS: FOLIC ACID 1 MG TABLET PO SCH (08:09)
[2021-10-28] MEDS: DOCUSATE SODIUM 100 MG CAPSULE PO SCH (08:09)
[2021-10-28] MEDS ORDERED: MAGNESIUM SULFATE 8.12 MEQ/2 ML VIAL IV ONE (08:12)
[2021-10-28] MEDS ORDERED: MAGNESIUM SULFATE 2 GM/50 ML BAG IV SCH (08:15)
[2021-10-28] MEDS: VITAMIN D3 125 MCG TABLET PO SCH (08:28)
[2021-10-28] MEDS: THIAMINE 100 MG in 0.9 % SODIUM CHLORIDE 50 ML IV SCH (09:45)
[2021-10-28] MEDS: NICOTINE 21 MG PATCH TOPICAL SCH (10:02)
--- NOTE | 2021-10-28 10:09 | Discharge Summary ---
Discharge Provider Provider Patient information: Note initiated : 10/28/21 at 10:08 am Service Date, if different from initiated Date: [] Patient: Bassam Parkinson 66 y/o M admitted on 10/26/21 for Weakness. Chief Complaint: [] Date of admission: 10/26/21 05:40 Discharge date: 10/28/21 Primary care physician: Eryn Littlejohn Admitting clinician: Franci Reese Consults: 10/26/21 Consult to Physician [CONS] Stat Comment: Consulting Provider: Fabio Nowak Reason For Exam: Physician to Consult Discharge Meds Discharge Medications Home Medications fenofibrate micronized 134 mg capsule 134 mg PO HS 08/03/17 [History Confirmed 10/26/21 Last Taken Unknown] omega-3 acid ethyl esters 1 gram capsule (Lovaza) 1 cap PO BID cap 08/03/17 [History Confirmed 10/26/21 Last Taken Unknown] albuterol sulfate 90 mcg/actuation aerosol inhaler 2 inh INHALATION QID 10/26/21 [History Confirmed 10/26/21 Last Taken Unknown] allopurinol 100 mg tablet 1 tab PO HS 10/26/21 [History Confirmed 10/26/21 Last Taken Unknown] amlodipine 5 mg tablet 1 tab PO HS 10/26/21 [History Confirmed 10/26/21 Last Taken Unknown] fluticasone fur. 100 mcg-umeclid 62.5 mcg-vilant 25 mcg inhalat.powder (Trelegy Ellipta) 1 puff PO QDAY 10/26/21 [History Confirmed 10/26/21 Last Taken Unknown] lorazepam 1 mg tablet 1 tab PO BIDP PRN 10/26/21 [History Confirmed 10/26/21 Last Taken Unknown] oxycodone-acetaminophen 5 mg-325 mg tablet 1 - 2 tab PO Q6HP PRN 10/26/21 [History Confirmed 10/26/21 Last Taken Unknown] sertraline 100 mg tablet 1 tab PO HS 10/26/21 [History Confirmed 10/26/21 Last Taken Unknown] sildenafil 100 mg tablet 1 tab PO QDP PRN 10/26/21 [History Confirmed 10/26/21 Last Taken Unknown] telmisartan 80 mg tablet 1 tab PO HS 10/26/21 [History Confirmed 10/26/21 Last Taken Unknown] azithromycin 250 mg tablet 250 mg PO QDAY #3 tab 05/10/22 [Rx Last Taken Unknown] COURSE Hospital Course Hospital course: Mr. Parkinson is a 66 year old male with a history of HTN, COPD, gout presented to the ED for dyspnea and discharged home on 10/24/2021 with a prescription for doxycycline for pneumonia. The patient returned to the ED after falling multiple times at home. The patient was found to have leukocytosis, severe hypokalemia and hypomagnesemia as well as hypocalcemia. Hospital medicine was consulted for admission. 10/27 Annabella resulted as positive for SARS-CoV-2, patient is on room air, high-grade temps but no fevers overnight Remdesivir started for nonsevere COVID of recent onset. Ongoing electrolyte replacement with potassium, phosphorus, magnesium. Repeat EKG shows improvement in QT interval. Aldosterone and renin activity ratio ordered for persistent hypokalemia in the setting of hypertension. Home telmisartan and amlodipine resumed. 10/28: I took over the care of this patient today and he is doing quite well. He is completing his 3rd IV infusion of remdesivir, and will continue zithromax to complete 5 day course of abx. His severe electrolyte derangements include hypoK, hypoMg and hypoPhos have improved. He states that he will continue to drink and smoke despite cessation counseling. He is at risk for re-admission due to poor compliance. Discharge diagnosis: Pneumonia Time spent discussing smoking cessation with patient: 3 to 10 minutes Time Spent with Patient Time attestation: Total time spent providing and/or coordinating discharge services: EXAM Constitutional Vitals: Temp Pulse Resp BP Pulse Ox 97.3 F 71 18 143/93 98 10/28/21 07:58 10/28/21 03:05 10/28/21 03:05 10/28/21 07:58 10/28/21 07:58 General appearance: average body habitus Head Head exam: Present atraumatic, normal inspection and normocephalic Eye Eye exam: Present EOMI, normal appearance and PERRL; Absent conjunctival injection ENT ENT exam: Present normal exam; Absent mucous membranes dry Neck Neck exam: Present full ROM; Absent lymphadenopathy Respiratory Respiratory exam: Present normal respiratory exam and CTAB; Absent decreased breath sounds, respiratory distress or wheezes Cardiovascular Cardiovascular exam: Present normal rate and rhythm and RRR; Absent JVD GI/Abdominal GI/Abdominal exam: Present normal bowel sounds and soft; Absent diminished bowel sounds, distended, guarding, mass, rebound or tenderness Neurological Exam Neurological exam: Present alert, CN II-XII intact and oriented X3 Psychiatric Psychiatric exam: Present normal affect and normal mood Skin Skin exam: Present intact and warm; Absent erythema, pallor, petechiae or rash Discharge Data Data Completed and Pending Labs on day of discharge: Labs from last 24 hours 10/28/21 10/28/21 05:35 05:35 WBC 6.4 RBC 3.87 L Hgb 14.7 Hct 40.1 MCV 103.6 H MCH 38.0 H MCHC 36.7 H RDW 13.4 Plt Count 152 MPV 10.1 Neut % (Auto) 60.2 Lymph % (Auto) 25.2 [place] % (Auto) 14.1 H Eos % (Auto) 0.2 Baso % (Auto) 0.3 Lymph # (Auto) 1.61 [place] # (Auto) 0.90 Eos # (Auto) 0.01 Baso # (Auto) 0.02 Absolute Neutrophils 3.84 Sodium 136 Potassium 3.0 L Chloride 97 Carbon Dioxide 28 Anion Gap 11.0 BUN 7 L Creatinine 0.6 L GFR Calculation 106 Glucose 109 H Uric Acid 2.4 L Calcium 7.3 L Phosphorus 2.6 Magnesium 1.4 L Total Bilirubin 0.7 Direct Bilirubin 0.4 H GGT 567 H AST 72 H ALT 77 H Alkaline Phosphatase 100 Lactate Dehydrogenase 312 H Total Protein 6.1 Albumin 3.2 Globulin 2.9 Albumin/Globulin Ratio 1.1 Triglycerides 70 Preliminary micro results at discharge 10/26/21 10:21 Blood Culture - Preliminary Blood 10/26/21 10:11 Blood Culture - Preliminary Blood Discharge Plan Patient/Caregiver Discharge Instructions Activity: as per physical therapy Diet: Regular Diet Prescriptions: New azithromycin 250 mg tablet 250 mg PO QDAY Qty: 3 0RF Continued omega-3 acid ethyl esters [Lovaza] 1 gram capsule 1 cap PO BID 0RF fenofibrate micronized 134 mg capsule 134 mg PO HS 0RF albuterol sulfate 90 mcg/actuation HFA aerosol inhaler 2 inh inhalation QID 0RF amlodipine 5 mg tablet 1 tab PO HS 0RF sertraline 100 mg tablet 1 tab PO HS 0RF oxycodone-acetaminophen 5-325 mg tablet 1 - 2 tab PO Q6HP PRN (Reason: Pain) 0RF telmisartan 80 mg tablet 1 tab PO HS 0RF Trelegy Ellipta 100-62.5-25 mcg blister with device 1 puff PO QDAY 0RF sildenafil 100 mg tablet 1 tab PO QDP PRN (Reason: Anxiety) 0RF lorazepam 1 mg tablet 1 tab PO BIDP PRN (Reason: anxiety) 0RF allopurinol 100 mg tablet 1 tab PO HS 0RF Discontinued doxycycline hyclate 100 mg capsule 100 mg PO BID Qty: 13 0RF Follow Up Plan Follow up with: Eryn Littlejohn MD [Primary Care Provider] - Patient Disposition: Home, Self-Care Prognosis: Good Discharge Orders: Discharge Order (Routine); Ordered 10/28/21 Ordered By: Franci Reese
[2021-10-28] MEDS: REMDESIVIR 100 MG in 0.9 % SODIUM CHLORIDE 250 ML IV SCH (11:00)
[2021-10-28] MEDS ORDERED: TELMISARTAN 40 MG TABLET PO SCH (21:00)
[2021-10-31 12:41] LABS: Aldosterone Serum 1 ng/dL; Aldosterone/PRA Ratio 2.4 Ratio (0.9-28.9); Renin Activity, Plasma 0.41 ng/mL/h (0.25-5.82)
== END 2021-10-28 12:40 | disposition home or self-care (01) | DRG 193 ==
LOC: ED 02:18 → ICU 05:40
PROVIDERS: ADMIT Internal Medicine; ATTEND Student in an Organized Health Care Education/Training Program

== ENCOUNTER 2023-11-16 01:40 | Inpatient (IN) ==
[2023-11-16 02:39] LABS: Basophils # (Auto) 0.02 K/mcL (0.00-0.30); Basophils % (Auto) 0.2 % (0.0-2.0); Eosinophils # (Auto) 0.13 K/mcL (0.00-0.70); Eosinophils % (Auto) 1.4 % (0.0-7.0); Hemoglobin 12.3 g/dL (13.7-17.5); Lymphocytes % (Auto) 19.8 % (15.5-49.0); Mean Cell Volume 97.3 fL (80.0-100.0); Mean Corpuscular HGB Conc 34.2 g/dL (31.0-36.0); Mean Platelet Volume 9.1 fL (8.8-12.5); Monocytes # (Auto) 0.71 K/mcL (0.10-0.90); Monocytes % (Auto) 7.8 % (1.0-12.0); Neutrophils % (Auto) 70.1 % (38.0-78.0); Platelet Count 176 K/mcL (140-440); WBC 9.1 K/mcL (4.5-11.0)
[2023-11-16] MEDS: 0.9 % SODIUM CHLORIDE 1,000 ML IV ONE (02:40)
[2023-11-16] MEDS: fentaNYL 100 MCG/2 ML VIAL IV ONE ×3 (02:50→05:10)
[2023-11-16 02:52] LABS: ALT/SGPT 40 U/L (<40); AST/SGOT 44 U/L (<40); Albumin 4.1 gm/dL (3.2-5.2); Albumin/Globulin Ratio 1.6 (1.0-2.3); Alkaline Phosphatase 66 U/L (39-117); Bilirubin,Total 0.5 mg/dL (0.1-1.0); Blood Urea Nitrogen 16 mg/dL (8-23); Calcium 9.2 mg/dL (8.6-10.4); Carbon Dioxide 24 mmol/L (22-30); Chloride 94 mmol/L (96-108); Globulin 2.5 gm/dL (2.2-3.7); Glomerular Filtration Rate 93; Glucose 126 mg/dL (70-105)
[2023-11-16 02:52] LABS: Alcohol,Blood 0.118 gm/dL (<0.010)
[2023-11-16] MEDS: KETOROLAC 15 MG/ML VIAL IV ONE (05:02)
[2023-11-16] MEDS: ELECTROLYTE,ORAL 1,000 ML SOLUTION PO ONE (05:10)
[2023-11-16] MEDS: LORazepam 2 MG/ML VIAL IV ONE (07:29)
[2023-11-16] MEDS: 0.9 % SODIUM CHLORIDE 1,000 ML IV SCH (11:45)
[2023-11-16] MEDS ORDERED: ACETAMINOPHEN 325 MG TABLET PO PRN (13:19)
[2023-11-16] MEDS ORDERED: ONDANSETRON 4 MG/2 ML VIAL IV PRN (13:19)
[2023-11-16] MEDS ORDERED: morphine 4 MG/ML VIAL IV PRN (13:19)
[2023-11-16] MEDS: THIAMINE 200 MG in 0.9 % SODIUM CHLORIDE 50 ML IV SCH (13:21)
[2023-11-16] MEDS: MAGNESIUM HYDROXIDE 30 ML ORAL.SUSP PO SCH (13:21)
[2023-11-16] MEDS: PRAMIPEXOLE 0.25 MG TABLET PO SCH (16:06)
[2023-11-16] MEDS: 0.9 % SODIUM CHLORIDE 10 ML SYRINGE IV SCH (16:06)
[2023-11-16] MEDS: LORazepam 1 MG TABLET PO PRN (16:10)
[2023-11-16] MEDS: HYDROcodone/APAP 5/325MG TABLET PO PRN (16:10)
[2023-11-16] MEDS: ALBUTEROL SULFATE 60 PUFF INHALER INH SCH (18:22)
[2023-11-16] MEDS: ALLOPURINOL 100 MG TABLET PO SCH (20:36)
[2023-11-16] MEDS: OLMESARTAN MEDOXOMIL 20 MG TABLET PO SCH (20:36)
[2023-11-16] MEDS: AMITRIPTYLINE 25 MG TABLET PO SCH (20:36)
[2023-11-16] MEDS: amLODIPine 5 MG TABLET PO SCH (20:36)
[2023-11-16] MEDS: OMEGA ACID ETHYL ESTERS PO SCH (20:37)
[2023-11-16] MEDS: SENNOSIDES 1 TABLET PO SCH (20:38)
[2023-11-17 06:57] LABS: Basophils # (Auto) 0.02 K/mcL (0.00-0.30); Basophils % (Auto) 0.2 % (0.0-2.0); Eosinophils % (Auto) 1.2 % (0.0-7.0); Hematocrit 37.8 % (40.1-51.0); Hemoglobin 12.5 g/dL (13.7-17.5); Lymphocytes # (Auto) 1.42 K/mcL (1.50-4.80); Lymphocytes % (Auto) 17.2 % (15.5-49.0); Mean Corpuscular HGB Conc 33.1 g/dL (31.0-36.0); Mean Platelet Volume 9.5 fL (8.8-12.5); Monocytes # (Auto) 0.76 K/mcL (0.10-0.90); Monocytes % (Auto) 9.2 % (1.0-12.0); Neutrophils % (Auto) 72.1 % (38.0-78.0); Platelet Count 162 K/mcL (140-440); RBC 3.78 M/mcL (4.63-6.08); Red Cell Distribution Width 13.1 % (11.5-14.5); WBC 8.3 K/mcL (4.5-11.0)
[2023-11-17 07:35] LABS: ALT/SGPT 27 U/L (<40); AST/SGOT 30 U/L (<40); Albumin 3.6 gm/dL (3.2-5.2); Albumin/Globulin Ratio 1.5 (1.0-2.3); Alkaline Phosphatase 53 U/L (39-117); Bilirubin,Total 0.8 mg/dL (0.1-1.0); Blood Urea Nitrogen 12 mg/dL (8-23); Calcium 8.7 mg/dL (8.6-10.4); Carbon Dioxide 20 mmol/L (22-30); Chloride 102 mmol/L (96-108); Globulin 2.4 gm/dL (2.2-3.7); Glomerular Filtration Rate 93; Glucose 88 mg/dL (70-105)
[2023-11-17] MEDS: FENOFIBRATE 43 MG CAPSULE PO SCH (09:59)
[2023-11-17] MEDS: ATORVASTATIN 10 MG TABLET PO SCH (09:59)
[2023-11-17] MEDS: Fluticasone-Umeclidin-Vilanter [Trelegy Ellipta] PO SCH (10:00)
[2023-11-17] MEDS: THIAMINE 100 MG TABLET PO SCH ×2 (13:23→18:56)
[2023-11-17] MEDS: ENOXAPARIN 40 MG/0.4 ML SYRINGE SQ SCH (21:47)
[2023-11-18 06:16] LABS: Basophils # (Auto) 0.01 K/mcL (0.00-0.30); Basophils % (Auto) 0.1 % (0.0-2.0); Eosinophils # (Auto) 0.17 K/mcL (0.00-0.70); Eosinophils % (Auto) 1.8 % (0.0-7.0); Hematocrit 37.7 % (40.1-51.0); Hemoglobin 12.2 g/dL (13.7-17.5); Lymphocytes # (Auto) 2.41 K/mcL (1.50-4.80); Lymphocytes % (Auto) 24.8 % (15.5-49.0); Mean Corpuscular HGB Conc 32.4 g/dL (31.0-36.0); Mean Platelet Volume 9.1 fL (8.8-12.5); Monocytes # (Auto) 0.81 K/mcL (0.10-0.90); Monocytes % (Auto) 8.3 % (1.0-12.0); Neutrophils % (Auto) 64.7 % (38.0-78.0); Platelet Count 154 K/mcL (140-440); RBC 3.66 M/mcL (4.63-6.08); Red Cell Distribution Width 13.3 % (11.5-14.5); WBC 9.7 K/mcL (4.5-11.0)
[2023-11-18 06:53] LABS: ALT/SGPT 21 U/L (<40); AST/SGOT 23 U/L (<40); Albumin 3.4 gm/dL (3.2-5.2); Albumin/Globulin Ratio 1.3 (1.0-2.3); Alkaline Phosphatase 59 U/L (39-117); Bilirubin,Total 0.6 mg/dL (0.1-1.0); Blood Urea Nitrogen 12 mg/dL (8-23); Calcium 8.8 mg/dL (8.6-10.4); Carbon Dioxide 20 mmol/L (22-30); Chloride 103 mmol/L (96-108); Globulin 2.6 gm/dL (2.2-3.7); Glomerular Filtration Rate 98; Glucose 101 mg/dL (70-105)
[2023-11-18] MEDS: THIAMINE 100 MG TABLET PO SCH (08:50)
[2023-11-19 06:33] LABS: Basophils # (Auto) 0.02 K/mcL (0.00-0.30); Basophils % (Auto) 0.3 % (0.0-2.0); Eosinophils # (Auto) 0.19 K/mcL (0.00-0.70); Eosinophils % (Auto) 2.6 % (0.0-7.0); Hematocrit 36.2 % (40.1-51.0); Hemoglobin 12.2 g/dL (13.7-17.5); Lymphocytes # (Auto) 2.07 K/mcL (1.50-4.80); Lymphocytes % (Auto) 27.9 % (15.5-49.0); Mean Cell Volume 98.6 fL (80.0-100.0); Mean Corpuscular HGB Conc 33.7 g/dL (31.0-36.0); Mean Platelet Volume 9.3 fL (8.8-12.5); Monocytes # (Auto) 0.68 K/mcL (0.10-0.90); Monocytes % (Auto) 9.2 % (1.0-12.0); Neutrophils % (Auto) 59.9 % (38.0-78.0); Platelet Count 185 K/mcL (140-440); RBC 3.67 M/mcL (4.63-6.08); WBC 7.4 K/mcL (4.5-11.0)
[2023-11-19 06:58] LABS: ALT/SGPT 18 U/L (<40); AST/SGOT 25 U/L (<40); Albumin 3.6 gm/dL (3.2-5.2); Albumin/Globulin Ratio 1.3 (1.0-2.3); Alkaline Phosphatase 54 U/L (39-117); Bilirubin,Total 0.7 mg/dL (0.1-1.0); Blood Urea Nitrogen 11 mg/dL (8-23); Calcium 9.3 mg/dL (8.6-10.4); Carbon Dioxide 24 mmol/L (22-30); Chloride 101 mmol/L (96-108); Globulin 2.7 gm/dL (2.2-3.7); Glomerular Filtration Rate 93; Glucose 100 mg/dL (70-105)
[2023-11-20 07:13] LABS: Basophils # (Auto) 0.02 K/mcL (0.00-0.30); Basophils % (Auto) 0.2 % (0.0-2.0); Eosinophils # (Auto) 0.17 K/mcL (0.00-0.70); Eosinophils % (Auto) 1.6 % (0.0-7.0); Hematocrit 36.2 % (40.1-51.0); Hemoglobin 12.2 g/dL (13.7-17.5); Lymphocytes # (Auto) 1.18 K/mcL (1.50-4.80); Lymphocytes % (Auto) 11.1 % (15.5-49.0); Mean Cell Volume 98.4 fL (80.0-100.0); Mean Corpuscular HGB Conc 33.7 g/dL (31.0-36.0); Mean Platelet Volume 9.4 fL (8.8-12.5); Monocytes # (Auto) 0.66 K/mcL (0.10-0.90); Monocytes % (Auto) 6.2 % (1.0-12.0); Neutrophils % (Auto) 80.7 % (38.0-78.0); Platelet Count 199 K/mcL (140-440); RBC 3.68 M/mcL (4.63-6.08); Red Cell Distribution Width 12.9 % (11.5-14.5); WBC 10.7 K/mcL (4.5-11.0)
[2023-11-20 07:34] LABS: ALT/SGPT 21 U/L (<40); AST/SGOT 29 U/L (<40); Albumin 3.6 gm/dL (3.2-5.2); Albumin/Globulin Ratio 1.4 (1.0-2.3); Alkaline Phosphatase 71 U/L (39-117); Bilirubin,Total 0.5 mg/dL (0.1-1.0); Blood Urea Nitrogen 12 mg/dL (8-23); Calcium 9.3 mg/dL (8.6-10.4); Carbon Dioxide 23 mmol/L (22-30); Chloride 101 mmol/L (96-108); Globulin 2.6 gm/dL (2.2-3.7); Glomerular Filtration Rate 98; Glucose 137 mg/dL (70-105)
== END 2023-11-23 11:10 | DRG 536 ==
LOC: ED 01:40 → ICU 01:40 → MEDSUR 11-17 08:50
PROVIDERS: ADMIT Student in an Organized Health Care Education/Training Program; ATTEND Internal Medicine